=== PATIENT | female | born 1950 | race Two or more races ===

== ENCOUNTER 2020-12-09 14:44 | Inpatient (IN) | payer OTHER, MEDICARE ==
[~2020-12-09] VITALS: Ht 157.5 cm; Wt 86.0 kg
[2020-12-09] MEDS ORDERED: PLEASE ENTER HEIGHT AND WEIGHT MC SCH (15:21)
[2020-12-09] MEDS ORDERED: CEFTRIAXONE 1,000 MG in DEXTROSE 5% 50 ML IVPB ONE (15:30)
[2020-12-09] MEDS ORDERED: SODIUM CHLORIDE FLUSH 10ML SYR IVF ONE (15:30)
[2020-12-09] MEDS ORDERED: PLEASE ENTER ALLERGIES MC SCH (15:30)
[2020-12-09] MEDS ORDERED: DEXAMETHASONE 4 MG/ML, 1ML IVPush ONE (15:30)
[2020-12-09] MEDS ORDERED: SODIUM CHLORIDE 0.9% 1,000 ML IV ONE (15:30)
[2020-12-09] MEDS ORDERED: AZITHROMYCIN 500 MG in SODIUM CHLORIDE 0.9% 250 ML IVPB ONE (15:30)
[2020-12-09 15:50] LABS: BASOPHILS % (AUTO) 0 % (0-1); EOSINOPHILS % (AUTO) 0 % (1-7); LYMPHOCYTES % (AUTO) 4 % (22-44); MEAN CORPUSCULAR HEMOGLOBIN 29.4 pg (27.0-34.8); MEAN CORPUSCULAR HGB CONC 34.5 g/dL (32.4-35.8); MEAN PLATELET VOLUME 8.5 fL (7.4-10.4); MONOCYTES % (AUTO) 8 % (2-9); NEUTROPHILS % (AUTO) 88 % (42-75); PLATELET COUNT 210 x10^3/uL (130-400); RED BLOOD COUNT 4.58 x10^6/uL (3.82-5.3); RED CELL DISTRIBUTION WIDTH 13.5 % (9.6-15.2)
[2020-12-09 16:00] LABS: ALANINE AMINOTRANSFERASE 42 U/L (12-78); ALBUMIN 2.7 g/dL (3.4-5.0); ANION GAP 8 mmol/L (5-15); CALCIUM 9.2 mg/dL (8.5-10.1); CHLORIDE 99 mmol/L (98-107); CREATININE 0.69 mg/dL (0.55-1.02)
[2020-12-09 16:05] LABS: ALKALINE PHOSPHATASE 89 U/L (45-117); BILIRUBIN,TOTAL 1.2 mg/dL (0.2-1.0); TOTAL PROTEIN 8.2 g/dL (6.4-8.2); TROPONIN I < 0.015 ng/mL (0.000-0.045)
--- NOTE | 2020-12-09 16:10 | NUR ---
IV STARTED. PT DAUGHTER AT BEDSIDE. PT ABLE TO ANSWER SOME QUESTIONS, SPEAKS IN SHOT SENTENCES. PT O2 SWITCHED FROM SIMPLE O2 MASK AT 8L TO NON REBREATHER AT 15L. PT SAT CURRENTLY 90%.
--- NOTE | 2020-12-09 16:11 | NUR ---
CALLED ENGINEERING TO TURN ON NEGATIVE PRESSURE IN ROM FOR COVID + PT
[2020-12-09] MEDS ORDERED: GUAIFENESIN/DM 200-20MG, 10ML UDC PO PRN (17:00)
[2020-12-09] MEDS ORDERED: OXYcodone IR 5MG TABLET PO PRN (17:00)
[2020-12-09] MEDS ORDERED: ACETAMINOPHEN 325 MG TABLET PO PRN (17:00)
[2020-12-09] MEDS ORDERED: ONDANSETRON 2MG/ML, 2ML IVPush PRN (17:00)
[2020-12-09] MEDS ORDERED: hydrALAzine 20 MG/ML, 1ML IVPush PRN (17:00)
[2020-12-09] MEDS ORDERED: SODIUM CHLORIDE FLUSH 10ML SYR IVF PRN (17:00)
[2020-12-09] MEDS ORDERED: DOCUSATE 100 MG CAPSULE PO PRN (17:00)
[2020-12-09] MEDS ORDERED: LABETALOL 5MG/ML, 20ML IVPush PRN (17:00)
--- NOTE | 2020-12-09 17:04 | NUR ---
pt sating 85% on 15L per non rebreather. HOSPITALIST AWARE. RT CALLED TO START PT ON OPTIFLOW PER HOSPITALIST ORDER.
--- NOTE | 2020-12-09 17:12 | NUR ---
RT IN NOW SETTING PT ON OPTIFLOW
[2020-12-09] MEDS ORDERED: FUROSEMIDE 40 MG/4 ML IV ONE (17:30)
[2020-12-09 17:41] LABS: FREE T4 (FREE THYROXINE) 1.32 ng/dL (0.76-1.46)
--- NOTE | 2020-12-09 17:45 | NUR ---
pt 85% on optioflo. called rt, rt in room 55L 100%. attempt for second iv failed. pt instructed ot breathe thru nose. will notify primary [email or web address]
[2020-12-09] MEDS ORDERED: FUROSEMIDE 40 MG/4 ML ONE (17:48)
[2020-12-09] MEDS ORDERED: DEXAMETHASONE 4 MG/ML, 1ML ONE (17:48)
--- NOTE | 2020-12-09 18:00 | NUR ---
REPORT GIVEN TO TONYA RODRIGUEZ. PT SATING 85% ON OPTIFLOW. RT AWARE, STATED SHE WILL BE DOWN TO EVAL PT.
[2020-12-09] MEDS ORDERED: TOCILIZUMAB 600 MG in SODIUM CHLORIDE 0.9% 70 ML IVPB ONE (20:00)
[2020-12-09] MEDS: NYSTATIN 500,000 UNITS/5 ML UDC PO SCH (20:19)
[2020-12-09] MEDS: MELATONIN 5 MG TABLET PO SCH (20:19)
[2020-12-09] MEDS: ZINC SULFATE 220 MG CAPSULE PO SCH (20:19)
[2020-12-09] MEDS: ASCORBIC ACID 500 MG TABLET PO SCH (20:19)
[2020-12-09] MEDS: FAMOTIDINE 20 MG/2 ML IVPush SCH (20:19)
[2020-12-09] MEDS: ENOXAPARIN 40 MG/0.4 ML SQ SCH (20:20)
[2020-12-09] MEDS: INSULIN LISPRO 100 UNITS/ML, PEN SQ-INSULIN SCH (21:00)
[2020-12-09] MEDS: SODIUM CHLORIDE FLUSH 10ML SYR IVF SCH (21:00)
[2020-12-10 01:54] VITALS: BP 105/58
[2020-12-10 04:33] LABS: BASOPHILS % (AUTO) 1 % (0-1); EOSINOPHILS % (AUTO) 0 % (1-7); LYMPHOCYTES % (AUTO) 8 % (22-44); MEAN CORPUSCULAR HGB CONC 33.9 g/dL (32.4-35.8); MEAN PLATELET VOLUME 8.2 fL (7.4-10.4); MONOCYTES % (AUTO) 4 % (2-9); NEUTROPHILS % (AUTO) 87 % (42-75); PLATELET COUNT 191 x10^3/uL (130-400); RED CELL DISTRIBUTION WIDTH 13.5 % (9.6-15.2)
[2020-12-10 04:48] LABS: ALANINE AMINOTRANSFERASE 34 U/L (12-78); ALBUMIN 2.3 g/dL (3.4-5.0); ANION GAP 7 mmol/L (5-15); CHLORIDE 102 mmol/L (98-107); CREATININE 0.56 mg/dL (0.55-1.02)
[2020-12-10 04:50] LABS: ALKALINE PHOSPHATASE 81 U/L (45-117); BILIRUBIN,TOTAL 0.8 mg/dL (0.2-1.0); TOTAL PROTEIN 7.6 g/dL (6.4-8.2)
[2020-12-10] MEDS: CEFTRIAXONE 2 GM in DEXTROSE 5% 50 ML IVPB SCH (06:09)
[2020-12-10] MEDS: NYSTATIN 500,000 UNITS/5 ML UDC PO SCH ×4 (07:48→21:01)
[2020-12-10 08:43] LABS: MICROSCOPIC NOT IND
[2020-12-10] MEDS: SODIUM CHLORIDE FLUSH 10ML SYR IVF SCH ×2 (09:00→21:04)
[2020-12-10] MEDS: ZINC SULFATE 220 MG CAPSULE PO SCH (10:00)
[2020-12-10] MEDS: FAMOTIDINE 20 MG/2 ML IVPush SCH (10:00)
[2020-12-10] MEDS: ENOXAPARIN 40 MG/0.4 ML SQ SCH ×2 (10:00→21:01)
[2020-12-10] MEDS: INSULIN LISPRO 100 UNITS/ML, PEN SQ-INSULIN SCH ×4 (10:00→21:04)
[2020-12-10] MEDS: CHOLECALCIFEROL 1,000 UNIT TABLET PO SCH (10:00)
[2020-12-10] MEDS: DEXAMETHASONE 4 MG/ML, 1ML IVPush SCH (10:00)
[2020-12-10] MEDS: ASCORBIC ACID 500 MG TABLET PO SCH ×2 (10:01→17:27)
[2020-12-10] MEDS: THIAMINE 100MG TABLET PO SCH (10:01)
[2020-12-10] MEDS: AZITHROMYCIN 500 MG TABLET PO SCH (10:08)
[2020-12-10] MEDS ORDERED: REMDESIVIR 200 MG in SODIUM CHLORIDE 0.9% 250 ML IVPB ONE (11:00)
[2020-12-10] MEDS ORDERED: FAMOTIDINE 20 MG/2 ML IVPush SCH (21:00)
[2020-12-10] MEDS: MELATONIN 5 MG TABLET PO SCH (21:01)
[2020-12-10] MEDS: FAMOTIDINE 20 MG TABLET PO SCH (21:01)
[2020-12-11 05:15] LABS: CHLORIDE 103 mmol/L (98-107)
[2020-12-11 05:24] LABS: ALANINE AMINOTRANSFERASE 39 U/L (12-78); ALBUMIN 2.3 g/dL (3.4-5.0); ALKALINE PHOSPHATASE 79 U/L (45-117); ANION GAP 9 mmol/L (5-15); BILIRUBIN,TOTAL 0.6 mg/dL (0.2-1.0); CALCIUM 9.3 mg/dL (8.5-10.1); CREATININE 0.58 mg/dL (0.55-1.02); TOTAL PROTEIN 7.3 g/dL (6.4-8.2)
[2020-12-11] MEDS: NYSTATIN 500,000 UNITS/5 ML UDC PO SCH ×4 (06:00→20:41)
[2020-12-11] MEDS: CEFTRIAXONE 2 GM in DEXTROSE 5% 50 ML IVPB SCH (06:22)
[2020-12-11] MEDS: INSULIN LISPRO 100 UNITS/ML, PEN SQ-INSULIN SCH ×4 (07:24→20:51)
[2020-12-11] MEDS: ENOXAPARIN 40 MG/0.4 ML SQ SCH ×2 (08:51→20:41)
[2020-12-11] MEDS: DEXAMETHASONE 4 MG/ML, 1ML IVPush SCH (08:52)
[2020-12-11] MEDS: AZITHROMYCIN 500 MG TABLET PO SCH (08:52)
[2020-12-11] MEDS: CHOLECALCIFEROL 1,000 UNIT TABLET PO SCH (08:52)
[2020-12-11] MEDS: FAMOTIDINE 20 MG TABLET PO SCH (08:52)
[2020-12-11] MEDS: ASCORBIC ACID 500 MG TABLET PO SCH ×2 (08:52→16:13)
[2020-12-11] MEDS: THIAMINE 100MG TABLET PO SCH (08:53)
[2020-12-11] MEDS: SODIUM CHLORIDE FLUSH 10ML SYR IVF SCH ×2 (08:53→20:51)
[2020-12-11] MEDS: ZINC SULFATE 220 MG CAPSULE PO SCH (08:53)
[2020-12-11] MEDS: REMDESIVIR 100 MG in SODIUM CHLORIDE 0.9% 250 ML IVPB SCH (11:29)
[2020-12-11 12:44] LABS: ALANINE AMINOTRANSFERASE 42 U/L (12-78); ALBUMIN 2.4 g/dL (3.4-5.0); ANION GAP 10 mmol/L (5-15); CALCIUM 9.5 mg/dL (8.5-10.1); CHLORIDE 104 mmol/L (98-107); CREATININE 0.62 mg/dL (0.55-1.02)
[2020-12-11 12:47] LABS: ALKALINE PHOSPHATASE 82 U/L (45-117); BILIRUBIN,TOTAL 0.5 mg/dL (0.2-1.0); TOTAL PROTEIN 7.7 g/dL (6.4-8.2)
[2020-12-11] MEDS: MELATONIN 5 MG TABLET PO SCH (20:41)
[2020-12-12] MEDS: CEFTRIAXONE 2 GM in DEXTROSE 5% 50 ML IVPB SCH (05:37)
[2020-12-12] MEDS: NYSTATIN 500,000 UNITS/5 ML UDC PO SCH ×4 (05:39→21:22)
[2020-12-12] MEDS: INSULIN LISPRO 100 UNITS/ML, PEN SQ-INSULIN SCH ×4 (06:11→21:00)
[2020-12-12] MEDS: DEXAMETHASONE 4 MG/ML, 1ML IVPush SCH (08:37)
[2020-12-12] MEDS: FAMOTIDINE 20 MG TABLET PO SCH (08:37)
[2020-12-12] MEDS: CHOLECALCIFEROL 1,000 UNIT TABLET PO SCH (08:37)
[2020-12-12] MEDS: AZITHROMYCIN 500 MG TABLET PO SCH (08:38)
[2020-12-12] MEDS: THIAMINE 100MG TABLET PO SCH (08:38)
[2020-12-12] MEDS: ZINC SULFATE 220 MG CAPSULE PO SCH (08:38)
[2020-12-12] MEDS: ENOXAPARIN 40 MG/0.4 ML SQ SCH ×2 (08:38→21:22)
[2020-12-12] MEDS: SODIUM CHLORIDE FLUSH 10ML SYR IVF SCH ×2 (08:38→21:22)
[2020-12-12] MEDS: ASCORBIC ACID 500 MG TABLET PO SCH ×2 (08:38→16:10)
[2020-12-12] MEDS: REMDESIVIR 100 MG in SODIUM CHLORIDE 0.9% 250 ML IVPB SCH (11:23)
[2020-12-12] MEDS: MELATONIN 5 MG TABLET PO SCH (21:22)
[2020-12-13 04:41] LABS: ALANINE AMINOTRANSFERASE 42 U/L (12-78); ALBUMIN 2.2 g/dL (3.4-5.0); CREATININE 0.49 mg/dL (0.55-1.02)
[2020-12-13 04:44] LABS: ALKALINE PHOSPHATASE 77 U/L (45-117); BILIRUBIN,TOTAL 0.5 mg/dL (0.2-1.0); TOTAL PROTEIN 6.8 g/dL (6.4-8.2)
[2020-12-13 04:47] LABS: ANION GAP 6 mmol/L (5-15); CHLORIDE 107 mmol/L (98-107)
[2020-12-13] MEDS: CEFTRIAXONE 2 GM in DEXTROSE 5% 50 ML IVPB SCH (06:15)
[2020-12-13] MEDS: NYSTATIN 500,000 UNITS/5 ML UDC PO SCH (06:17)
[2020-12-13] MEDS: SODIUM CHLORIDE FLUSH 10ML SYR IVF SCH ×2 (08:07→20:44)
[2020-12-13] MEDS: ZINC SULFATE 220 MG CAPSULE PO SCH (08:07)
[2020-12-13] MEDS: CHOLECALCIFEROL 1,000 UNIT TABLET PO SCH (08:07)
[2020-12-13] MEDS: INSULIN LISPRO 100 UNITS/ML, PEN SQ-INSULIN SCH (08:07)
[2020-12-13] MEDS: THIAMINE 100MG TABLET PO SCH (08:07)
[2020-12-13] MEDS: ASCORBIC ACID 500 MG TABLET PO SCH ×2 (08:07→17:03)
[2020-12-13] MEDS: AZITHROMYCIN 500 MG TABLET PO SCH (08:07)
[2020-12-13] MEDS: FAMOTIDINE 20 MG TABLET PO SCH (08:07)
[2020-12-13] MEDS: ENOXAPARIN 40 MG/0.4 ML SQ SCH ×2 (08:07→20:45)
[2020-12-13] MEDS: DEXAMETHASONE 4 MG/ML, 1ML IVPush SCH (08:07)
[2020-12-13] MEDS: REMDESIVIR 100 MG in SODIUM CHLORIDE 0.9% 250 ML IVPB SCH (11:09)
[2020-12-13] MEDS: MELATONIN 5 MG TABLET PO SCH (20:45)
[2020-12-14 04:16] LABS: ALBUMIN 2.4 g/dL (3.4-5.0); ANION GAP 5 mmol/L (5-15); CHLORIDE 106 mmol/L (98-107)
[2020-12-14 04:20] LABS: ALANINE AMINOTRANSFERASE 45 U/L (12-78); ALKALINE PHOSPHATASE 75 U/L (45-117); BILIRUBIN,TOTAL 0.6 mg/dL (0.2-1.0); CREATININE 0.52 mg/dL (0.55-1.02); TOTAL PROTEIN 6.9 g/dL (6.4-8.2)
[2020-12-14] MEDS: CEFTRIAXONE 2 GM in DEXTROSE 5% 50 ML IVPB SCH (05:39)
[2020-12-14] MEDS: AZITHROMYCIN 500 MG TABLET PO SCH (08:20)
[2020-12-14] MEDS: ZINC SULFATE 220 MG CAPSULE PO SCH (08:20)
[2020-12-14] MEDS: ASCORBIC ACID 500 MG TABLET PO SCH ×2 (08:20→17:30)
[2020-12-14] MEDS: CHOLECALCIFEROL 1,000 UNIT TABLET PO SCH (08:20)
[2020-12-14] MEDS: THIAMINE 100MG TABLET PO SCH (08:20)
[2020-12-14] MEDS: FAMOTIDINE 20 MG TABLET PO SCH (08:20)
[2020-12-14] MEDS: DEXAMETHASONE 4 MG/ML, 1ML IVPush SCH (08:21)
[2020-12-14] MEDS: SODIUM CHLORIDE FLUSH 10ML SYR IVF SCH ×2 (08:21→21:00)
[2020-12-14] MEDS: ENOXAPARIN 40 MG/0.4 ML SQ SCH ×2 (08:21→21:36)
[2020-12-14] MEDS: REMDESIVIR 100 MG in SODIUM CHLORIDE 0.9% 250 ML IVPB SCH (11:40)
[2020-12-14] MEDS: MELATONIN 5 MG TABLET PO SCH (21:35)
[2020-12-15] MEDS: CEFTRIAXONE 2 GM in DEXTROSE 5% 50 ML IVPB SCH (05:34)
[2020-12-15] MEDS: SODIUM CHLORIDE FLUSH 10ML SYR IVF SCH ×2 (09:00→20:22)
[2020-12-15] MEDS: FAMOTIDINE 20 MG TABLET PO SCH (09:19)
[2020-12-15] MEDS: CHOLECALCIFEROL 1,000 UNIT TABLET PO SCH (09:19)
[2020-12-15] MEDS: ZINC SULFATE 220 MG CAPSULE PO SCH (09:19)
[2020-12-15] MEDS: AZITHROMYCIN 500 MG TABLET PO SCH (09:19)
[2020-12-15] MEDS: ASCORBIC ACID 500 MG TABLET PO SCH ×2 (09:19→17:12)
[2020-12-15] MEDS: THIAMINE 100MG TABLET PO SCH (09:19)
[2020-12-15] MEDS: DEXAMETHASONE 4 MG/ML, 1ML IVPush SCH (09:19)
[2020-12-15] MEDS: ENOXAPARIN 40 MG/0.4 ML SQ SCH ×2 (09:20→20:22)
[2020-12-15 20:21] VITALS: BP 112/64
[2020-12-15] MEDS: MELATONIN 5 MG TABLET PO SCH (20:23)
[2020-12-16] MEDS: CEFTRIAXONE 2 GM in DEXTROSE 5% 50 ML IVPB SCH (05:44)
[2020-12-16] MEDS: AZITHROMYCIN 500 MG TABLET PO SCH (09:28)
[2020-12-16] MEDS: DEXAMETHASONE 4 MG/ML, 1ML IVPush SCH (09:28)
[2020-12-16] MEDS: ASCORBIC ACID 500 MG TABLET PO SCH ×2 (09:28→18:00)
[2020-12-16] MEDS: THIAMINE 100MG TABLET PO SCH (09:28)
[2020-12-16] MEDS: FAMOTIDINE 20 MG TABLET PO SCH (09:28)
[2020-12-16] MEDS: ZINC SULFATE 220 MG CAPSULE PO SCH (09:28)
[2020-12-16] MEDS: CHOLECALCIFEROL 1,000 UNIT TABLET PO SCH (09:28)
[2020-12-16] MEDS: SODIUM CHLORIDE FLUSH 10ML SYR IVF SCH ×2 (09:29→21:26)
[2020-12-16] MEDS: ENOXAPARIN 40 MG/0.4 ML SQ SCH ×2 (09:29→21:26)
[2020-12-16 19:27] VITALS: BP 116/79
[2020-12-16] MEDS: MELATONIN 5 MG TABLET PO SCH (21:26)
[2020-12-17 01:04] VITALS: BP 119/72
[2020-12-17 05:51] LABS: BASOPHILS % (AUTO) 1 % (0-1); EOSINOPHILS % (AUTO) 0 % (1-7); LYMPHOCYTES % (AUTO) 8 % (22-44); MEAN CORPUSCULAR HGB CONC 33.3 g/dL (32.4-35.8); MEAN PLATELET VOLUME 8.6 fL (7.4-10.4); MONOCYTES % (AUTO) 4 % (2-9); NEUTROPHILS % (AUTO) 88 % (42-75); PLATELET COUNT 199 x10^3/uL (130-400); RED BLOOD COUNT 4.51 x10^6/uL (3.82-5.3); RED CELL DISTRIBUTION WIDTH 13.9 % (9.6-15.2)
[2020-12-17 05:52] LABS: ANION GAP 7 mmol/L (5-15); CALCIUM 9.2 mg/dL (8.5-10.1); CHLORIDE 106 mmol/L (98-107); CREATININE 0.57 mg/dL (0.55-1.02)
[2020-12-17 08:15] VITALS: BP 124/72
[2020-12-17] MEDS: DEXAMETHASONE 4 MG/ML, 1ML IVPush SCH (08:19)
[2020-12-17] MEDS: ENOXAPARIN 40 MG/0.4 ML SQ SCH ×2 (08:19→20:45)
[2020-12-17] MEDS: FAMOTIDINE 20 MG TABLET PO SCH (08:19)
[2020-12-17] MEDS: CHOLECALCIFEROL 1,000 UNIT TABLET PO SCH (08:20)
[2020-12-17] MEDS: ZINC SULFATE 220 MG CAPSULE PO SCH (08:20)
[2020-12-17] MEDS: THIAMINE 100MG TABLET PO SCH (08:20)
[2020-12-17] MEDS: ASCORBIC ACID 500 MG TABLET PO SCH ×2 (08:20→15:48)
[2020-12-17] MEDS: SODIUM CHLORIDE FLUSH 10ML SYR IVF SCH ×2 (08:21→20:45)
[2020-12-17] MEDS ORDERED: FUROSEMIDE 20 MG/2 ML IV ONE (14:30)
[2020-12-17 15:22] VITALS: BP 114/77
[2020-12-17 20:42] VITALS: BP 114/78
[2020-12-17] MEDS: MELATONIN 5 MG TABLET PO SCH (20:46)
[2020-12-18 03:56] VITALS: BP 120/70
[2020-12-18 06:31] LABS: CALCIUM 8.9 mg/dL (8.5-10.1); CREATININE 0.51 mg/dL (0.55-1.02)
[2020-12-18 06:51] LABS: ANION GAP 8 mmol/L (5-15); CHLORIDE 104 mmol/L (98-107)
[2020-12-18] MEDS: ZINC SULFATE 220 MG CAPSULE PO SCH (08:20)
[2020-12-18] MEDS: THIAMINE 100MG TABLET PO SCH (08:20)
[2020-12-18] MEDS: ENOXAPARIN 40 MG/0.4 ML SQ SCH ×2 (08:20→21:23)
[2020-12-18] MEDS: DEXAMETHASONE 4 MG/ML, 1ML IVPush SCH (08:20)
[2020-12-18] MEDS: ASCORBIC ACID 500 MG TABLET PO SCH ×2 (08:21→17:41)
[2020-12-18] MEDS: FAMOTIDINE 20 MG TABLET PO SCH (08:21)
[2020-12-18] MEDS: CHOLECALCIFEROL 1,000 UNIT TABLET PO SCH (08:21)
[2020-12-18] MEDS: SODIUM CHLORIDE FLUSH 10ML SYR IVF SCH ×2 (08:22→21:25)
[2020-12-18 08:24] VITALS: BP 134/79
[2020-12-18] MEDS ORDERED: FUROSEMIDE 20 MG/2 ML IV ONE (10:30)
[2020-12-18 15:00] VITALS: BP 112/70
[2020-12-18 19:53] VITALS: BP 113/75
[2020-12-18] MEDS: MELATONIN 5 MG TABLET PO SCH (21:00)
[2020-12-19 02:24] VITALS: BP 131/71
[2020-12-19 06:14] LABS: BASOPHILS % (AUTO) 0 % (0-1); EOSINOPHILS % (AUTO) 0 % (1-7); LYMPHOCYTES % (AUTO) 10 % (22-44); MEAN CORPUSCULAR HGB CONC 33.3 g/dL (32.4-35.8); MEAN PLATELET VOLUME 8.4 fL (7.4-10.4); MONOCYTES % (AUTO) 8 % (2-9); NEUTROPHILS % (AUTO) 82 % (42-75); PLATELET COUNT 162 x10^3/uL (130-400); RED BLOOD COUNT 4.34 x10^6/uL (3.82-5.3); RED CELL DISTRIBUTION WIDTH 14.2 % (9.6-15.2)
[2020-12-19 06:24] LABS: ANION GAP 8 mmol/L (5-15); CALCIUM 8.6 mg/dL (8.5-10.1); CHLORIDE 103 mmol/L (98-107); CREATININE 0.56 mg/dL (0.55-1.02)
[2020-12-19 08:28] VITALS: BP 131/71
[2020-12-19] MEDS: ASCORBIC ACID 500 MG TABLET PO SCH ×2 (09:01→15:57)
[2020-12-19] MEDS: THIAMINE 100MG TABLET PO SCH (09:01)
[2020-12-19] MEDS: FAMOTIDINE 20 MG TABLET PO SCH (09:01)
[2020-12-19] MEDS: ZINC SULFATE 220 MG CAPSULE PO SCH (09:02)
[2020-12-19] MEDS: CHOLECALCIFEROL 1,000 UNIT TABLET PO SCH (09:02)
[2020-12-19] MEDS: DEXAMETHASONE 4 MG/ML, 1ML IVPush SCH (09:02)
[2020-12-19] MEDS: ENOXAPARIN 40 MG/0.4 ML SQ SCH ×2 (09:03→21:30)
[2020-12-19] MEDS: SODIUM CHLORIDE FLUSH 10ML SYR IVF SCH ×2 (09:03→21:32)
[2020-12-19 13:12] VITALS: BP 126/77
[2020-12-19 18:57] VITALS: BP 120/77
[2020-12-19] MEDS: MELATONIN 5 MG TABLET PO SCH (21:00)
[2020-12-20 03:10] VITALS: BP 125/72
[2020-12-20] MEDS: ASCORBIC ACID 500 MG TABLET PO SCH ×2 (08:04→17:25)
[2020-12-20] MEDS: ENOXAPARIN 40 MG/0.4 ML SQ SCH ×2 (08:04→20:35)
[2020-12-20] MEDS: THIAMINE 100MG TABLET PO SCH (08:04)
[2020-12-20] MEDS: ZINC SULFATE 220 MG CAPSULE PO SCH (08:04)
[2020-12-20] MEDS: DEXAMETHASONE 4 MG/ML, 1ML IVPush SCH (08:04)
[2020-12-20] MEDS: CHOLECALCIFEROL 1,000 UNIT TABLET PO SCH (08:04)
[2020-12-20] MEDS: FAMOTIDINE 20 MG TABLET PO SCH (08:04)
[2020-12-20] MEDS: FUROSEMIDE 20 MG/2 ML IV SCH (08:04)
[2020-12-20] MEDS: SODIUM CHLORIDE FLUSH 10ML SYR IVF SCH ×2 (08:05→20:35)
[2020-12-20 08:12] VITALS: BP 122/77
[2020-12-20 08:38] VITALS: BP 119/78
[2020-12-20 13:44] VITALS: BP 103/68
[2020-12-20 20:29] VITALS: BP 127/86
[2020-12-20] MEDS: MELATONIN 5 MG TABLET PO SCH (20:35)
[2020-12-21 01:50] VITALS: BP 127/72
[2020-12-21 07:59] VITALS: BP 127/77
[2020-12-21] MEDS: ASCORBIC ACID 500 MG TABLET PO SCH (08:01)
[2020-12-21] MEDS: ZINC SULFATE 220 MG CAPSULE PO SCH (08:01)
[2020-12-21] MEDS: FAMOTIDINE 20 MG TABLET PO SCH (08:01)
[2020-12-21] MEDS: DEXAMETHASONE 4 MG/ML, 1ML IVPush SCH (08:01)
[2020-12-21] MEDS: THIAMINE 100MG TABLET PO SCH (08:01)
[2020-12-21] MEDS: FUROSEMIDE 20 MG/2 ML IV SCH (08:01)
[2020-12-21] MEDS: CHOLECALCIFEROL 1,000 UNIT TABLET PO SCH (08:01)
[2020-12-21] MEDS: SODIUM CHLORIDE FLUSH 10ML SYR IVF SCH (08:02)
[2020-12-21] MEDS: ENOXAPARIN 40 MG/0.4 ML SQ SCH (08:02)
[2020-12-21] MEDS ORDERED: RIVA10TA2 PO (09:05)
== END 2020-12-21 15:09 | disposition home or self-care (01) | DRG 871 ==
LOC: ED 16:30 → EDIP 16:34 → ED 17:01 → CCU 18:53 → 4WST 12-15 19:55
PROVIDERS: ADMIT Hospitalist; ATTEND Family Medicine
PROC: XW033H5 Introduction of Tocilizumab into Peripheral Vein, Percutaneous Approach, New Technology Group 5 (ICD-10-PCS; 2020-12-09)
PROC: XW033E5 Introduction of Remdesivir Anti-infective into Peripheral Vein, Percutaneous Approach, New Technology Group 5 (ICD-10-PCS; 2020-12-10)
PROC: 5A0935A Assistance with Respiratory Ventilation, Less than 24 Consecutive Hours, High Flow/Velocity Cannula (ICD-10-PCS; principal; 2020-12-11)
PROC: 5A0935A Assistance with Respiratory Ventilation, Less than 24 Consecutive Hours, High Flow/Velocity Cannula (ICD-10-PCS; 2020-12-12)
PROC: 5A0935A Assistance with Respiratory Ventilation, Less than 24 Consecutive Hours, High Flow/Velocity Cannula (ICD-10-PCS; 2020-12-13)
PROC: 5A0935A Assistance with Respiratory Ventilation, Less than 24 Consecutive Hours, High Flow/Velocity Cannula (ICD-10-PCS; 2020-12-14)
PROC: 5A0935A Assistance with Respiratory Ventilation, Less than 24 Consecutive Hours, High Flow/Velocity Cannula (ICD-10-PCS; 2020-12-18)
PROC: 5A0935A Assistance with Respiratory Ventilation, Less than 24 Consecutive Hours, High Flow/Velocity Cannula (ICD-10-PCS; 2020-12-19)
PROC: 5A0935A Assistance with Respiratory Ventilation, Less than 24 Consecutive Hours, High Flow/Velocity Cannula (ICD-10-PCS; 2020-12-20)
DX: A41.89 Other specified sepsis (principal); J12.82 Pneumonia due to coronavirus disease 2019; J96.01 Acute respiratory failure with hypoxia; U07.1 COVID-19; E44.0 Moderate protein-calorie malnutrition; E87.1 Hypo-osmolality and hyponatremia; E80.6 Other disorders of bilirubin metabolism; R65.20 Severe sepsis without septic shock; D72.810 Lymphocytopenia; Z91.018 Allergy to other foods; Z68.34 Body mass index [BMI] 34.0-34.9, adult
CPT/HCPCS: 36415; 36600; 71045; 80048; 80053; 81003; 82803; 82962; 83036; 83605; 83615; 83735; 83880; 83970; 84100; 84439; 84443; 84484; 85025; 85379; 86140; 87040; 87081; 93005; G0378; J0456; J0696; J1100; J1650; J1940; J1815; J3262; J7030; J7050